=== PATIENT | female | born 1975 | race Caucasian/White ===

== ENCOUNTER → 2016-11-10 17:24 | Outpatient (CLI) | payer BC ==
[2013-06-22 09:25] VITALS: BMI 28.7
[~2016-11-10 17:24] MED LIST: HYDROCODONE-APA1 TAB PO; HYZAAR 50-12.51 TAB PO; IBUPROFEN600 MG PO
== END | disposition home or self-care (01) ==
LOC: D.MAMMO 15:00
DX: Z12.31 Encounter for screening mammogram for malignant neoplasm of breast (principal)

== ENCOUNTER 2017-12-16 19:00 | Outpatient (CLI) | payer BC ==
[2013-06-22 09:25] VITALS: BMI 28.7
== END 2017-12-16 23:59 | disposition home or self-care (01) ==
LOC: D.MAMMO 19:00
DX: Z12.31 Encounter for screening mammogram for malignant neoplasm of breast (principal)

== ENCOUNTER 2018-12-22 09:00 | Outpatient (CLI) | payer BC ==
[2013-06-22 09:25] VITALS: BMI 28.7
== END 2018-12-22 10:00 | disposition home or self-care (01) ==
LOC: D.MAMMO 09:00
PROVIDERS: ATTEND Family Medicine
DX: Z12.31 Encounter for screening mammogram for malignant neoplasm of breast (principal)

== ENCOUNTER → 2020-06-04 13:08 | Outpatient (CLI) | payer BC ==
[2013-06-22 09:25] VITALS: BMI 28.7
== END | disposition home or self-care (01) ==
LOC: D.MRI 13:08
PROVIDERS: ATTEND Family Medicine
DX: H81.4 Vertigo of central origin (principal); G44.89 Other headache syndrome